=== PATIENT | female | born 1940 | race Caucasian/White ===

== ENCOUNTER → 2016-12-29 | Outpatient (CLI) | payer MEDICARE ==
[~2016-12-29] VITALS: Ht 154.9 cm; Wt 57.8 kg
[~2016-12-29] MED LIST: ACET-703 PO; ASPI81CH37 CHEW; ASPI81TA82 PO; ATEN-102 PO; ATEN25TA PO; INSULIN HUMAN REGULAR 1,000 UNITS/10 ML VIAL SQ PRN; LACTATED RINGER'S 1000 ML IV SCH; LANS30 PO; METOPROLOL TARTRATE 25 MG TAB PO PRN; PROPOFOL 200 MG/20 ML AMP IV ONE; SODIUM CHLORID 0.9% 500 ML IV SCH; TYLE500T PO
[2016-12-29 08:33] VITALS: BP 137/60; PULSE 69; RESP 16; TEMP 97.9; O2SAT 100
[2016-12-29 10:47] VITALS: TEMP 98
--- NOTE | 2016-12-29 10:52 | GIPROC ---
[facility] [address] [facility]. [facility], [address] COLONOSCOPY PROCEDURE REPORT EXAM DATE: 12/29/2016 PATIENT NAME: Shahla Weaver MR #: [id number] BIRTHDATE: 1940 ENDOSCOPIST: Marisol Hoyt MD ORDER #: [id number] TRIM MECHANIC: Sean Mora and Josefa Heath STATUS: outpatient INDICATIONS: The patient is a 76 yr old female here for a colonoscopy due to history of colitis PROCEDURE PERFORMED: Colonoscopy with biopsy Colonoscopy with polypectomy MEDICATIONS: None and Per Anesthesia. PREP QUALITY: good PREP TYPE:GoLytely ESTIMATED BLOOD LOSS: None CONSENT: The patient understands the risks and benefits of the procedure and understands that these risks include, but are not limited to: sedation, allergic reaction, infection, perforation and/or bleeding. Alternative means of evaluation and treatment include, among others: physical exam, x-rays, and/or surgical intervention. The patient elects to proceed with this endoscopic procedure. medical equipment was checked for proper function. Hand hygiene and appropriate measures for infection prevention was taken. After the risks, benefits and alternatives of the procedure were thoroughly explained, Informed consent was verified, confirmed and timeout was successfully executed by the treatment team. A digital exam revealed external hemorrhoids The Pentax [id number] and [id number] endoscope was introduced through the anus and advanced to the cecum, which was identified by both the appendix and ileocecal valve. The instrument was then slowly withdrawn as the colon was fully examined. COLON FINDINGS: Diverticulosis sigmoid,descending polyp sessile ascending-7 mm-hot snare polypectomy with complete removal polyp diminutive midtransverse -cold biopsy with complete removal random biopsies from ascending, transverse, descending, sigmoid, rectum. Retroflexed views revealed internal hemorrhoids and Retroflexed views revealed small internal hemorrhoids The scope was then completely withdrawn from the patient and the procedure terminated. PROCEDURE WITHDRAWAL TIME:9minutes ADVERSE EVENTS: There were no complications. IMPRESSIONS: 1. Diverticulosis sigmoid,descending polyp sessile ascending-7 mm-hot snare polypectomy with complete removal polyp diminutive midtransverse -cold biopsy with complete removal random biopsies from ascending, transverse, descending, sigmoid, rectum 2. Retroflexed views revealed internal hemorrhoids 3. Retroflexed views revealed small internal hemorrhoids 4. Revealed external hemorrhoids RECOMMENDATIONS: 1. Await biopsy results. Biopsy results will not be ready for 7-10 days. If you don't hear from us in two weeks, call our office for results. 2. Probiotics from any [facility] or [facility] food store 3. Yearly rectal exams RECALL: Colonoscopy, pending biopsy results Marisol Hoyt MD eSigned: Marisol Hoyt MD 12/29/2016 10:52 AM cc: Celina Tamayo M.D. PATIENT NAME: Shahla Weaver MR#: [id number]
[2016-12-29 10:57] VITALS: BP 106/57; PULSE 59; RESP 16; O2SAT 98
--- NOTE | 2016-12-30 10:58 | EKG ---
Date Performed: 12/29/2016 Time Performed: 08:25:14 PTAGE: 76 years EKG: Sinus rhythm NORMAL ECG NO PREVIOUS TRACING DOCTOR: Jane Palmer Interpretating Date/Time 12/30/2016 10:56:46
== END ==
LOC: HEND 08:05
PROVIDERS: ATTEND Internal Medicine Gastroenterology
DX: Z12.11 Encounter for screening for malignant neoplasm of colon (principal); D12.3 Benign neoplasm of transverse colon; K57.30 Diverticulosis of large intestine without perforation or abscess without bleeding; K64.4 Residual hemorrhoidal skin tags; K64.8 Other hemorrhoids; Z01.810 Encounter for preprocedural cardiovascular examination
CPT/HCPCS: 00810; 45380; 45385; 88305; 93005; J7120